=== PATIENT | male | born 1950 | race Caucasian/White ===

== ENCOUNTER → 2018-04-08 | Outpatient (CLI) | payer OTHER | END | disposition home or self-care (01) | LOC: LAB SHORT 14:33 → PLD 14:33 | DX: D48.5 Neoplasm of uncertain behavior of skin (principal) | CPT/HCPCS: 88305 ==

== ENCOUNTER 2020-04-20 10:43 | Day surgery (SDC) | payer OTHER ==
[~2020-04-20] VITALS: Ht 180.3 cm; Wt 110.8 kg
[~2020-04-20 10:43] MED LIST: AMLODIPINE BESY10 MG PO
[2020-04-20] MEDS ORDERED: ERGO400 PO (11:27)
--- NOTE | 2020-04-20 13:37 | NUR ---
04/20/20 1337 Mya Martin PT HAD NO PAIN OR NAUSEA, ANXIOUS TO GO HOME, DISCHARGE INSTRUCTIONS DONE AND DISCHARGED THE PATIENT WITHOUT ANY DIFFICULTY.
== END 2020-04-20 13:36 | disposition home or self-care (01) ==
LOC: ORSCSDS 10:43
PROVIDERS: Podiatrist Foot & Ankle Surgery
PROC: 01BG0ZZ Excision of Tibial Nerve, Open Approach (ICD-10-PCS; principal; 2020-04-20 12:00)
DX: G57.61 Lesion of plantar nerve, right lower limb (principal); I10 Essential (primary) hypertension; E78.5 Hyperlipidemia, unspecified; E66.9 Obesity, unspecified; Z68.34 Body mass index [BMI] 34.0-34.9, adult
CPT/HCPCS: 88304; J0171; J0690; J2250; J2370; J2704; J3010; J7120

== ENCOUNTER → 2021-07-18 | Outpatient (CLI) | payer OTHER ==
[~2021-07-18] MED LIST changes: +ERGO400 PO
== END | disposition home or self-care (01) ==
LOC: LAB SHORT 12:10 → PLD 12:10
DX: D04.39 Carcinoma in situ of skin of other parts of face (principal)
CPT/HCPCS: 88305